=== PATIENT | female | born 1990 | race Caucasian/White ===

== ENCOUNTER 2024-05-26 04:30 | Day surgery (SDC) | payer OTHER ==
[2024-05-24 17:58] VITALS: BMI 26.5
[2024-05-26] MEDS ORDERED: MIDAZOLAM HCL 2 MG/2 ML SINGLE DOSE VIAL ONE (10:27)
[2024-05-26] MEDS ORDERED: SODIUM CHLORIDE 0.9% P/F 10 ML VIAL IJ ONE (10:28)
[2024-05-26] MEDS ORDERED: ceFAZolin SODIUM 1 GM VIAL ONE (10:28)
[2024-05-26] MEDS ORDERED: PROPOFOL 20 ML ONE ×2 (10:28→10:48)
[2024-05-26] MEDS ORDERED: LIDOCAINE HCL/PF 2% SDV 5ML VIAL ONE (10:28)
[2024-05-26] MEDS ORDERED: LIDOCAINE 1%/EPI 1:100000 (20 ML MULTI DOSE VIAL) ONE (10:35)
[2024-05-26] MEDS ORDERED: GLYCOPYRROLATE 0.2 MG/1 ML VIAL ONE (10:35)
[2024-05-26] MEDS: ceFAZolin SODIUM 1 GM VIAL IVPB ONE (10:39)
[2024-05-26] MEDS ORDERED: ONDANSETRON 4 MG/2 ML VIAL ONE (10:43)
[2024-05-26] MEDS ORDERED: DEXAMETHASONE SOD PHOSPHATE 4 MG/1 ML VIAL ONE (10:43)
[2024-05-26] MEDS ORDERED: KETOROLAC TROMETHAMINE 30 MG/1 ML VIAL ONE (11:01)
[2024-05-26] MEDS ORDERED: ACETAMINOPHEN INJECTION 100 ML IVPB ONE (11:15)
[2024-05-26 12:29] VITALS: RESP 16
[2024-05-26] MEDS ORDERED: ONDANSETRON 4 MG/2 ML VIAL IVPUSH PRN (12:52)
[2024-05-26] MEDS ORDERED: oxyCODONE HCL 5 MG TABLET PO PRN (12:52)
[2024-05-26 12:58] VITALS: BP 111/78; PULSE 80; TEMP 97.7
[2024-05-26] MEDS ORDERED: LACTATED RINGERS SOLUTION 1,000 ML IV SCH (13:00)
== END 2024-05-26 13:34 | disposition home or self-care (01) ==
LOC: JASU-SURG 04:30
PROVIDERS: ATTEND Orthopaedic Surgery
PROC: 0YPB0YZ Removal of Other Device from Left Lower Extremity, Open Approach (ICD-10-PCS; principal; 2024-05-26 10:00)
DX: T84.84XA Pain due to internal orthopedic prosthetic devices, implants and grafts, initial encounter (principal)
CPT/HCPCS: 81025; 88300-TC; 94760; J0131